=== PATIENT | male | born 1995 | race Caucasian/White ===

== ENCOUNTER 2016-11-13 03:23 | Emergency (ER) | payer OTHER ==
[2016-11-13 05:42] VITALS: BP 130/74
== END 2016-11-13 05:42 | disposition home or self-care (01) ==
LOC: ED 03:23
DX: R06.00 Dyspnea, unspecified (principal); T43.615A Adverse effect of caffeine, initial encounter; Y92.89 Other specified places as the place of occurrence of the external cause
CPT/HCPCS: Q0092

== ENCOUNTER 2019-08-11 10:30 | Emergency (ER) | payer BC ==
[~2019-08-11] VITALS: Ht 170.2 cm; Wt 97.1 kg
[2019-08-11 10:36] VITALS: Ht 170.2 cm; Wt 97.1 kg
[2019-08-11 12:38] LABS: BASOPHIL % 1.1 % (0-2); PLATELET COUNT 320 x10^3mcL (130-400); RED CELL DISTRIBUTION WIDTH 12.5 % (11.5-14.5)
[2019-08-11 12:50] LABS: CALCIUM 9.9 mg/dL (8.5-10.1); CARBON DIOXIDE 26.8 mmol/L (21-32); CHLORIDE SERUM 103 mmol/L (98-107); CREATININE SERUM 0.8 mg/dL (0.7-1.3); GFR1 > 60 mL/min; GLUCOSE SERUM 86 mg/dL (74-106); POTASSIUM SERUM 4.2 mmol/L (3.5-5.1); SODIUM SERUM 139 mmol/L (136-145)
[2019-08-11 13:05] LABS: LIPASE 173 IU/L (73-393)
[2019-08-11 13:15] LABS: ALBUMIN 4.8 g/dL (3.4-5.0); ALT/SGPT 110 U/L (16-63); AST/SGOT 39 U/L (15-37)
[2019-08-11 13:35] LABS: TOTAL PROTEIN, SERUM 8.6 g/dL (6.4-8.2)
[2019-08-11 13:36] LABS: BILIRUBIN TOTAL 0.6 mg/dL (0.20-1.00)
[2019-08-11 13:58] VITALS: BP 124/68
[2019-08-11 14:59] LABS: ALKALINE PHOSPHATASE 83 U/L (46-116)
[2019-08-11 15:48] LABS: AMPHETAMINE QUAL UR NONE DETECTED (See below)
== END 2019-08-11 13:58 | disposition home or self-care (01) ==
LOC: ED 10:30
PROVIDERS: Specialist
DX: R07.89 Other chest pain (principal); F41.9 Anxiety disorder, unspecified; Z98.890 Other specified postprocedural states
CPT/HCPCS: 36415; Q0092

== ENCOUNTER 2020-07-16 13:54 | Emergency (ER) | payer OTHER ==
[~2020-07-16] VITALS: Ht 172.7 cm; Wt 98.9 kg
[2020-07-16 14:12] VITALS: BP 150/103; Ht 172.7 cm; Wt 98.9 kg
== END 2020-07-16 14:51 | disposition home or self-care (01) ==
LOC: ED 13:54
DX: G47.30 Sleep apnea, unspecified (principal); F41.9 Anxiety disorder, unspecified

== ENCOUNTER 2020-07-21 14:11 | Emergency (ER) | payer OTHER ==
[~2020-07-21] VITALS: Ht 170.2 cm; Wt 95.3 kg
[2020-07-21 14:22] VITALS: Ht 170.2 cm; Wt 95.3 kg
[2020-07-21 16:18] LABS: BASOPHIL % 0.8 % (0.2-1.5); PLATELET COUNT 323 x10^3mcL (152-348); RED CELL DISTRIBUTION WIDTH 12.6 % (12.1-16.2)
[2020-07-21 16:19] LABS: CALCIUM 8.4 mg/dL (8.5-10.1); CARBON DIOXIDE 27.1 mmol/L (21-32); CHLORIDE SERUM 105 mmol/L (98-107); CREATININE SERUM 0.8 mg/dL (0.7-1.3); GFR1 > 60 mL/min; GLUCOSE SERUM 87 mg/dL (74-106); POTASSIUM SERUM 3.9 mmol/L (3.5-5.1); SODIUM SERUM 141 mmol/L (136-145)
[2020-07-21 18:15] VITALS: BP 130/73
== END 2020-07-21 18:15 | disposition home or self-care (01) ==
LOC: ED 14:11
PROVIDERS: Emergency Medicine
DX: R07.89 Other chest pain (principal); R53.1 Weakness
CPT/HCPCS: J7030

== ENCOUNTER 2020-07-27 18:31 | Emergency (ER) | payer OTHER ==
[~2020-07-27] VITALS: Ht 172.7 cm; Wt 94.8 kg
[2020-07-27 19:03] VITALS: Ht 172.7 cm; Wt 94.8 kg
[2020-07-27 20:04] VITALS: BP 129/85
== END 2020-07-27 20:04 | disposition home or self-care (01) ==
LOC: ED 18:31
DX: R13.10 Dysphagia, unspecified (principal); R00.2 Palpitations; R10.13 Epigastric pain

== ENCOUNTER 2020-07-30 22:59 | Emergency (ER) | payer OTHER ==
[~2020-07-30] VITALS: Ht 170.2 cm; Wt 93.9 kg
[2020-07-30 23:10] VITALS: Ht 170.2 cm; Wt 93.9 kg
[2020-07-30] MEDS ORDERED: PROZAC20 MG PO (23:55)
[2020-07-30] MEDS ORDERED: ATIVAN1 MG PO (23:55)
[2020-07-31 00:10] VITALS: BP 125/78
== END 2020-07-31 00:10 | disposition home or self-care (01) ==
LOC: ED 22:59
DX: F45.8 Other somatoform disorders (principal)